=== PATIENT | male | born 1965 | race Caucasian/White ===

== ENCOUNTER 2021-02-15 15:45 | Emergency (ER) | payer OTHER ==
[~2021-02-15] VITALS: Ht 162.6 cm; Wt 63.5 kg
[2021-02-15 15:45] VITALS: BP_SYST 149
[2021-02-15 16:40] LABS: BASOPHILS # (AUTO) 0.1 K/uL (0.0-0.2); BASOPHILS % (AUTO) 1.4 % (0.0-2.0); EOSINOPHILS % (AUTO) 0.3 % (0.0-4.0); HEMATOCRIT 39.8 % (36-54); HEMOGLOBIN 13.6 g/dL (14.0-18.0); LYMPHOCYTES # (AUTO) 0.5 K/uL (1.0-5.5); LYMPHOCYTES % (AUTO) 7.8 % (20.5-51.5); MEAN CORPUSCULAR HEMOGLOBIN 32 pg (27-31); MEAN CORPUSCULAR HGB CONC 34 % (32-36); MEAN CORPUSCULAR VOLUME 93 fL (79.0-98.0); MONOCYTES # (AUTO) 0.8 K/uL (0.0-1.0); MONOCYTES % (AUTO) 13.5 % (1.7-9.3); NEUTROPHILS # (AUTO) 4.7 K/uL (1.8-7.7); PLATELET COUNT (AUTO) 194 K/uL (130-430); RED BLOOD CELL COUNT(AUTO) 4.28 MIL/uL (4.2-6.2); RED CELL DISTRIBUTION WIDTH 13.7 % (9.0-15.0)
[2021-02-15 16:45] LABS: CALCIUM 8.2 mg/dL (8.4-11.0); CREATININE 0.81 mg/dL (0.55-1.30); POTASSIUM 3.7 mmol/L (3.5-5.1)
[2021-02-15 17:41] VITALS: BP_SYST 131
== END 2021-02-15 17:41 | disposition home or self-care (01) ==
LOC: SED 15:45
DX: R56.9 Unspecified convulsions (principal)
CPT/HCPCS: 36415; 80048; 84484; 85025; 93005; 99284